=== PATIENT | female | born 1950 | race Caucasian/White ===

== ENCOUNTER 2017-06-19 08:51 | Outpatient (CLI) | payer MEDICARE, OTHER ==
--- NOTE | 2017-06-20 10:15 | Mammography Report ---
DIGITAL SCREENING MAMMOGRAM: 06/19/2017 COMPARISON: 05/17/2016, 06/10/2013, 05/29/2012, 05/11/2011, 03/24/2010. TECHNIQUE: Bilateral digital CC and MLO projections. FINDINGS: There are scattered fibroglandular densities. There are increasing calcifications in the p osterior upper inner right breast which appear coarse and are likely benign. There is also a slight i ncrease in calcifications in the lateral left breast. Scattered nodularity in both breasts is stable. No suspicious architectural distortion, skin thickening or other interval change. IMPRESSION: PROBABLY BENIGN FINDINGS BILATERAL BREASTS. RECOMMENDATION: SUGGEST SIX MONTH FOLLOWUP BILATERAL MAMMOGRAPHY. BIRADS CATEGORY 3-PROBABLY BENIGN FINDINGS. STANDARD QUALIFYING STATEMENTS 1. This examination was reviewed with the aid of Computer-Aided Detection (CAD). 2. A negative or benign imaging report should not delay biopsy if clinically suspicious findings are present. Consider surgical consultation if warranted. More than 5% of cancers are not identified by i maging. 3. Dense breasts may obscure an underlying neoplasm. JOB #: [id number] EXT JOB #:[id number]
== END 2017-06-19 08:52 | disposition home or self-care (01) ==
LOC: DI 08:51
PROVIDERS: ATTEND Specialist
DX: Z12.31 Encounter for screening mammogram for malignant neoplasm of breast (principal); R92.1 Mammographic calcification found on diagnostic imaging of breast
CPT/HCPCS: 77067

== ENCOUNTER 2017-12-31 12:41 | Outpatient (CLI) | payer MEDICARE, OTHER ==
--- NOTE | 2017-12-31 15:12 | Mammography Report ---
Procedure Date: 12/31/2017 Accession Number: [id number] / [id number] Procedure: YESSENIA - Diagnostic Dig Bilat CPT Code: FULL RESULT: EXAM: Diagnostic Dig Bilat DATE: 12/31/2017 1:53 PM CLINICAL HISTORY: Follow-up microcalcifications. TECHNIQUE: Bilateral digital CC, ML, MLO views with additional magnification views. COMPARISON: 06/19/2017, 05-31 and 06/10/2013 FINDINGS: Clustered microcalcifications in the posterior superior medial right breast have not changed appreciably since 06/19/2017 and have minimally increased since 05-31. 2 punctate calcifications in the left breast 3:00 position middle third are also stable. No new findings are seen. Stable nodularity. IMPRESSION: Probably benign. BI-RADS 3 RECOMMENDATION: Follow-up bilateral mammography in 6 months. BIRADS CATEGORY 3: Probably benign STANDARD QUALIFYING STATEMENTS: 1. This examination was reviewed with the aid of Computer-Aided Detection (CAD). 2. A negative or benign imaging report should not delay biopsy if clinically suspicious findings are present. Consider surgical consultation if warrented. More than 5% of cancers are not identified by imaging. 3. Dense breasts may obscure an underlying neoplasm.
== END 2017-12-31 12:42 | disposition home or self-care (01) ==
LOC: DI 12:41
PROVIDERS: ATTEND Specialist
DX: R92.0 Mammographic microcalcification found on diagnostic imaging of breast (principal)
CPT/HCPCS: 77066

== ENCOUNTER 2018-01-01 14:36 | Outpatient (CLI) | payer MEDICARE, OTHER ==
--- NOTE | 2018-01-02 14:51 | DEXA Report ---
Procedure Date: 01/01/2018 Accession Number: [id number] / [id number] Procedure: DEX - Dexa Spine and/or Hip CPT Code: FULL RESULT: EXAM: Dexa Spine and/or Hip DATE: 01/01/2018 4:23 PM CLINICAL HISTORY: POST MENOPAUSAL TECHNIQUE: Dual energy x-ray absorptiometry (DXA) was performed on a [employer] System. Regions measured are the AP Spine, femoral neck, and if needed forearm. COMPARISON: None. In accordance with the International Society for Clinical Densitometry (ISCD) guidelines, data from previous exams may be reanalyzed using current recommendations and techniques. This is done to allow a more accurate basis for comparison with the current study. FINDINGS: The data for the lumbar spine is as follows: BMD (g/cm/cm) T-SCORE Z-SCORE REGION L1 0.949 -1.5 -0.5 L2 0.960 -2.0 -1.0 L3 1.103 -0.8 0.2 L4 1.167 -0.3 0.8 TOTAL 1.055 -1.0 0.0 NOTE: All evaluable vertebrae are used for classification The data for the hip is as follows: BMD (g/cm/cm) T-SCORE Z-SCORE REGION Neck 0.848 -1.4 -0.1 TOTAL 0.924 -0.7 0.3 NOTE: The femoral neck or total proximal femur, whichever is lowest, is used for classification. IMPRESSION: THE WHO CLASSIFICATION BASED ON THE INTERNATIONAL REFERENCE STANDARD IS OSTEOPENIA. THE FRACTURE RISK IS INCREASED. RECOMMENDATION: Patients with diagnosis of osteoporosis or osteopenia should have regular bone mineral density assessment. For those eligible for Medicare, routine testing is allowed once every 2 years. Testing frequency can be increased for patients who have rapidly progressing disease or for those who are receiving medical therapy to restore bone mass. COMMENT: World Health Organization (WHO) definitions for osteoporosis and osteopenia: NORMAL BMD: T-score at -1.0 or higher, fracture risk is low OSTEOPENIA BMD: T-score between -1.0 and -2.5, fracture risk is increased. OSTEOPOROSIS BMD: T-score at -2.5 or lower, fracture risk is high. National Osteoporosis Foundation recommends: 1. Obtain adequate dietary calcium (at least 1200 mg per day) and vitamin D (400-800 international units per day). 2. Participate, as appropriate, in regular weightbearing and muscle-strengthening exercise. 3. Avoid tobacco use and reduce alcohol and caffeine intake. 4. For more detailed information see the website at www.NOF.org.
== END 2018-01-01 14:37 | disposition home or self-care (01) ==
LOC: DI 14:36
PROVIDERS: ATTEND Specialist
DX: Z13.820 Encounter for screening for osteoporosis (principal); M85.89 Other specified disorders of bone density and structure, multiple sites; Z78.0 Asymptomatic menopausal state
CPT/HCPCS: 77080

== ENCOUNTER 2019-04-15 13:49 | Outpatient (CLI) | payer MEDICARE, OTHER ==
--- NOTE | 2019-04-16 07:56 | Mammography Report ---
Reason: ROUTINE MAMMO Procedure Date: 04/15/2019 Accession Number: [id number] / [id number] Procedure: YESSENIA - Screening Mammo w/[facility] CPT Code: FULL RESULT: EXAM: Screening Mammo w/[facility] DATE: 04/15/2019 2:47 PM CLINICAL HISTORY: Screening TECHNIQUE: (B) - Bilateral CC and MLO views were obtained. COMPARISON: 12/31/2017, 06/19/2017 PARENCHYMAL PATTERN: (A) - The breasts demonstrate scattered fibroglandular densities bilaterally. FINDINGS: Stable scattered right breast intramammary lymph nodes including a dominant node inferiorly, unchanged compared to at least 2015. There are no suspicious masses, calcifications, or areas of distortion. IMPRESSION: Benign findings. BI-RADS category 2. RECOMMENDATION: (ANNUAL) - Recommend routine annual screening mammography. BI-RADS CATEGORY: (2) - Benign Findings. STANDARD QUALIFYING STATEMENTS: 1. This examination was not reviewed with the aid of Computer-Aided Detection (CAD). 2. A negative or benign imaging report should not preclude biopsy if clinically suspicious findings are present. 3. Dense breasts may obscure an underlying neoplasm. 4. This examination was reviewed with the aid of 3D breast imaging (tomosynthesis).
== END 2019-04-15 13:50 | disposition home or self-care (01) ==
LOC: DI 13:49
DX: Z12.31 Encounter for screening mammogram for malignant neoplasm of breast (principal)
CPT/HCPCS: 77063; 77067

== ENCOUNTER 2020-09-30 11:35 | Outpatient (CLI) | payer MEDICARE, OTHER ==
--- NOTE | 2020-09-30 12:10 | CT Report ---
PROCEDURE: Abdomen/Pelvis WO INDICATIONS: HX OF KIDNEY STONES, RT FLANK PAIN TECHNIQUE: Noncontrast 5 mm thick sections acquired from the diaphragms to the symphysis. 5 mm coronal and sagi ttal reformats were then performed. For radiation dose reduction, the following was used: automated exposure control, adjustment of mA and/or kV according to patient size. COMPARISON: CT abdomen and pelvis without IV contrast 10/05/2015. FINDINGS: Image quality: Excellent. ABDOMEN: Lung bases: Lung bases are clear. Heart size is normal. Small hiatal hernia. Solid organs: Liver and spleen are normal in size. Gallbladder is unremarkable. Pancreas is normal in contours. No adrenal nodules. Kidneys are normal in size, without hydronephrosis or nephrolithi asis. Subtle hypodensity in the mid right kidney is similar to the CT from 2016. Right renal pelvis i s minimally prominent, unchanged. Peritoneum and bowel: No small bowel obstruction. Diverticulosis. No diverticulitis seen. Somewhat pr ominent stool in the proximal colon. The appendix is unremarkable. No free fluid or air. Nodes and vessels: No retroperitoneal or mesenteric adenopathy by size criteria. Aorta and inferior vena cava are normal in caliber. Mild calcified metastatic plaque. Miscellaneous: No ventral hernias. PELVIS: Genitourinary: Bladder is unremarkable. The uterus is absent. Suspect pelvic floor laxity. Miscellaneous: No inguinal hernias or adenopathy. Bones: No suspicious bony lesions. No vertebral body compression fractures. Right L5 pars defect. A nterolisthesis of L5 on S1 measuring 1 cm. Exaggerated lumbar spine lordosis. Severe DDD at L5-S1. IMPRESSION: No source for right flank pain is identified. No kidney stones. No hydronephrosis. The appendix is not dilated. No free fluid. Reviewed by: Froylan Dyer MD on 09/30/2020 11:09 AM ANGELA Approved by: Froylan Dyer MD on 09/30/2020 11:09 AM ANGELA Station ID: [id number]
== END 2020-09-30 11:36 | disposition home or self-care (01) ==
LOC: DI 11:35
PROVIDERS: ATTEND Physician Assistant
DX: R10.9 Unspecified abdominal pain (principal); R31.9 Hematuria, unspecified

== ENCOUNTER 2021-03-09 10:51 | Outpatient (CLI) | payer MEDICARE, OTHER ==
--- NOTE | 2021-03-09 15:08 | DEXA Report ---
PROCEDURE: Dexa Spine and/or Hip INDICATIONS: POST MENOPAUSAL TECHNIQUE: Dual energy x-ray absorptiometry (DXA) was performed on a [employer] System. Regions measur ed are the AP Spine, femoral neck, and if needed forearm. COMPARISON: None. FINDINGS: Lumbar Spine: Bone Mineral Density 1.076 g/cm/cm,T score - 0.9, -1.0 on prior exam Left Hip: Bone Mineral Density 0.911 g/cm/cm,T score -0.8, compared to -0.7 on prior exam. Left Femoral Neck: Bone Mineral Density 0.769 g/cm/cm, T score -1.9, compared to -1.4 and prior exam. (T score greater or equal to -1.0: NORMAL) (T score from -1.1 to -2.4: OSTEOPENIA) (T score less than or equal to -2.5 to: OSTEOPOROSIS) Impression: 1. Progressive osteopenia now moderate to severe in the left femoral neck. Patients with diagnosis of osteoporosis or osteopenia should have regular bone mineral density assess ment. For those eligible for Medicare, routine testing is allowed once every 2 years. Testing frequ ency can be increased for patients who have rapidly progressing disease or for those who are receivin g medical therapy to restore bone mass. Reviewed by: Afshan Jones MD on 03/09/2021 3:07 PM PDT Approved by: Afshan Jones MD on 03/09/2021 3:07 PM PDT Station ID: [id number]
== END 2021-03-09 10:52 | disposition home or self-care (01) ==
LOC: DI 10:51
PROVIDERS: ATTEND Physician Assistant
DX: Z13.820 Encounter for screening for osteoporosis (principal); M85.89 Other specified disorders of bone density and structure, multiple sites

== ENCOUNTER 2021-03-09 10:52 | Outpatient (CLI) | payer MEDICARE, OTHER ==
--- NOTE | 2021-03-10 13:25 | Mammography Report ---
BILATERAL DIGITAL SCREENING MAMMOGRAM 3D/2D: 03/09/2021 CLINICAL: Routine screening. Comparison is made to exams dated: 04/15/2019 mammogram, 12/31/2017 mammogram, 06/19/2017 mammogram, mammogram, 06/10/2013 mammogram, and 05/29/2012 mammogram - [facility]. Th e tissue of both breasts is predominantly fatty. No significant masses, calcifications, or other findings are seen in either breast. There has been no significant interval change. IMPRESSION: NEGATIVE There is no mammographic evidence of malignancy. A 1 year screening mammogram is recommended. This exam was interpreted at Station ID: [id number]. NOTE: For mammograms, a report in lay terms will be sent to the patient. Approximately 15% of breast malignancies will not be visualized mammographically. In the management of a palpable breast mass, a negative mammogram must not discourage biopsy of a clinically suspicious lesion. Electronically Signed By: Mukund Limon M.D., jr/rc:03/09/2021 12:38:47 ACR BI-RADS Category 1: Negative 3341F PARENCHYMAL PATTERN: (F) - The breast(s) demonstrate(s) diffuse fatty replacement. BI-RADS CATEGORY: (1) - 1 RECOMMENDATION: (ANNUAL) - Recommend routine annual screening mammography. [id number] 1 year screening LATERALITY: (B)
== END 2021-03-09 10:53 | disposition home or self-care (01) ==
LOC: DI 10:52
PROVIDERS: ATTEND Physician Assistant
DX: Z12.31 Encounter for screening mammogram for malignant neoplasm of breast (principal)

== ENCOUNTER 2022-06-19 13:32 | Outpatient (CLI) | payer MEDICARE, OTHER ==
--- NOTE | 2022-06-21 10:22 | Mammography Report ---
BILATERAL DIGITAL SCREENING MAMMOGRAM 3D/2D: 06/19/2022 CLINICAL: Routine screening. Comparison is made to exams dated: 03/09/2021 mammogram, 04/15/2019 mammogram, and 12/31/2017 mammogram - [facility]. There are scattered areas of fibroglandular density in both breasts (category b / 25%-50% glandular t issue). There is an oval focal asymmetry in the right breast at 12 o'clock posterior depth. This is increase d in size. No other significant masses, calcifications, or other findings are seen in either breast. IMPRESSION: INCOMPLETE: NEEDS ADDITIONAL IMAGING EVALUATION The oval focal asymmetry in the right breast resembles a lymph node and is indeterminate. Additional views with possible ultrasound are recommended. Based on the Tyrer Cuzick model (a risk assessment model) the patients lifetime risk is 7.3% and her 10 year risk is 6.0%. According to the ACR, ACS, and NCCN guidelines, an annual breast MRI exam haim g with mammogram is recommended if the patients lifetime risk is 20% or greater. This exam was interpreted at Station ID: [id number]. NOTE: For mammograms, a report in lay terms will be sent to the patient. Approximately 15% of breast malignancies will not be visualized mammographically. In the management of a palpable breast mass, a negative mammogram must not discourage biopsy of a clinically suspicious lesion. Electronically Signed By: Jad sheffield/rc:06/20/2022 09:52:45 ACR BI-RADS Category 0: Incomplete 3340F PARENCHYMAL PATTERN: (A) - The breast(s) demonstrate(s) scattered fibroglandular densities. BI-RADS CATEGORY: (0) - 0 Mammo and [place] [id number] Immediate follow-up LATERALITY: (R)
== END 2022-06-19 13:33 | disposition home or self-care (01) ==
LOC: DI 13:32
PROVIDERS: ATTEND Physician Assistant
DX: Z12.31 Encounter for screening mammogram for malignant neoplasm of breast (principal); R92.8 Other abnormal and inconclusive findings on diagnostic imaging of breast

== ENCOUNTER 2022-07-05 10:49 | Outpatient (CLI) | payer MEDICARE, OTHER ==
--- NOTE | 2022-07-05 13:30 | Ultrasound Report ---
LIMITED ULTRASOUND OF RIGHT BREAST AND AXILLA: 07/05/2022 CLINICAL: Patient returns today to evaluate a focal asymmetry in the right breast. Comparison is made to exams dated: 07/05/2022 mammogram, 06/19/2022 mammogram, 03/09/2021 mammogram, mammogram, 12/31/2017 mammogram, and 05/17/2016 mammogram - [facility]. Color flow and real-time ultrasound of the right breast 12 o'clock, and axilla regions were performed . Navarro scale images of the real-time examination were reviewed. There is a 0.5 cm x 0.6 cm x 0.6 cm (radial, anti-radial, transverse) irregular solid mass in the rig ht breast at 12 o'clock posterior depth. This irregular solid mass is hypoechoic with no posterior a coustic shadowing or enhancement. Color flow imaging demonstrates that there is no vascularity prese nt. IMPRESSION: SUSPICIOUS OF MALIGNANCY The 0.5 cm x 0.6 cm x 0.6 cm (radial, anti-radial, transverse) irregular solid mass in the right hina st is suspicious of malignancy. An ultrasound guided biopsy is recommended. This exam was interpreted at Station ID: [id number]. Electronically Signed By: Mukund Limon M.D., jr/rc:07/05/2022 12:40:07 Ultrasound BI-RADS: 4 Suspicious for malignancy BI-RADS CATEGORY: (4) - 4 Biopsy [id number] Immediate follow-up LATERALITY: (R)
--- NOTE | 2022-07-05 13:30 | Mammography Report ---
UNILATERAL RIGHT DIGITAL DIAGNOSTIC MAMMOGRAM 3D/2D WITH SPOT COMPRESSION: 07/05/2022 CLINICAL: Patient returns today to evaluate a focal asymmetry in the right breast. Comparison is made to exams dated: 06/19/2022 mammogram, 03/09/2021 mammogram, 04/15/2019 mammogram, mammogram, and 06/19/2017 mammogram - [facility]. There are scattered areas of fibroglandular density in the right breast (category b / 25%-50% glandul ar tissue). There is an oval focal asymmetry in the right breast at 12 o'clock posterior depth. This is seen in additional views. This is not significantly changed. No other significant masses or calcifications are seen in the breast. IMPRESSION: INCOMPLETE: NEEDS ADDITIONAL IMAGING EVALUATION The oval focal asymmetry in the right breast is indeterminate. An ultrasound is recommended. Based on the Tyrer Cuzick model (a risk assessment model) the patients lifetime risk is 7.3% and her 10 year risk is 6.0%. According to the ACR, ACS, and NCCN guidelines, an annual breast MRI exam haim g with mammogram is recommended if the patients lifetime risk is 20% or greater. This exam was interpreted at Station ID: [id number]. NOTE: For mammograms, a report in lay terms will be sent to the patient. Approximately 15% of breast malignancies will not be visualized mammographically. In the management of a palpable breast mass, a negative mammogram must not discourage biopsy of a clinically suspicious lesion. Electronically Signed By: Mukund Limon M.D., jr/rc:07/05/2022 12:38:58 ACR BI-RADS Category 0: Incomplete 3340F PARENCHYMAL PATTERN: (A) - The breast(s) demonstrate(s) scattered fibroglandular densities. BI-RADS CATEGORY: (0) - 0 Ultrasound [id number] Immediate follow-up LATERALITY: (B)
== END 2022-07-05 10:50 | disposition home or self-care (01) ==
LOC: DI 10:49
PROVIDERS: ATTEND Physician Assistant
DX: N63.15 Unspecified lump in the right breast, overlapping quadrants (principal)

== ENCOUNTER 2022-07-12 12:38 | Outpatient (CLI) | payer MEDICARE, OTHER ==
[2022-07-12] MEDS ORDERED: LIDOCAINE-MPF 1% 5 ML VIAL ONE (13:22)
[2022-07-12] MEDS ORDERED: LIDOCAINE 1%-EPI 1:100000 20 ML MDV ONE (13:22)
[2022-07-12] MEDS ORDERED: LIDOCAINE 1%-EPI 1:100000 20 ML MDV SUBQ ONE (15:20)
[2022-07-12] MEDS ORDERED: LIDOCAINE-MPF 1% 5 ML VIAL TD ONE (15:21)
--- NOTE | 2022-07-13 13:01 | Mammography Report ---
UNILATERAL RIGHT DIGITAL DIAGNOSTIC MAMMOGRAM POST-PROCEDURE IMAGING FOR MARKER PLACEMENT: 07/12/2022 CLINICAL: Post right breast ultrasound biopsy clip placement imaging. Comparison is made to exams dated: 07/05/2022 mammogram, 06/19/2022 mammogram, and 03/09/2021 mammogra m - [facility]. There are scattered areas of fibroglandular density in the right breast (category b / 25%-50% glandul ar tissue). There is a marker clip in the appropriate position in the right breast at 12 o'clock posterior depth. The marker clip is adjacent to the mammographic abnormality and there is a hematoma. IMPRESSION: POST PROCEDURE MAMMOGRAM FOR MARKER PLACEMENT There was a successful marker clip placement in the right breast posterior depth. The marker clip is adjacent to the mammographic abnormality and there is a hematoma. Based on the Tyrer Cuzick model (a risk assessment model) the patients lifetime risk is 7.3% and her 10 year risk is 6.0%. According to the ACR, ACS, and NCCN guidelines, an annual breast MRI exam haim g with mammogram is recommended if the patients lifetime risk is 20% or greater. This exam was interpreted at Station ID: [id number]. NOTE: For mammograms, a report in lay terms will be sent to the patient. Approximately 15% of breast malignancies will not be visualized mammographically. In the management of a palpable breast mass, a negative mammogram must not discourage biopsy of a clinically suspicious lesion. Electronically Signed By: Genaro Lopes M.D. lc/:07/12/2022 15:11:48 ACR BI-RADS Category Post-procedure mammogram for marker placement PARENCHYMAL PATTERN: (A) - The breast(s) demonstrate(s) scattered fibroglandular densities. BI-RADS CATEGORY: () - Unspecified - other recall n/a LATERALITY: (B)
--- NOTE | 2022-07-20 08:22 | Ultrasound Report ---
ULTRASOUND GUIDED BIOPSY RIGHT BREAST USING VACUUM DEVICE WITH MARKING DEVICE INSERTED AND POST MAMMO GRAPHIC IMAGIN07/12/2022 CLINICAL: Right breast mass. PATIENT CONSENT: Risks (minor bleeding, infection, vasovagal reaction and repeat procedure), benefits and alternatives were explained to the patient and written informed consent was obtained. Correlation is made to exams dated: 07/05/2022 ultrasound, 07/05/2022 mammogram, 06/19/2022 mammogram , 03/09/2021 mammogram, 04/15/2019 mammogram, and 12/31/2017 mammogram - [facility]. An ultrasound guided biopsy using real-time ultrasound was performed for the 0.5 cm x 0.6 cm x 0.6 cm mass located in the right breast at 12 o'clock posterior depth. This was described on the previous ultrasound report. The skin was prepped in the usual manner. Local anesthetic was administered to t he access site. A skin jerome was made in the breast. A 13 gauge biopsy needle was placed adjacent to the abnormality under ultrasound guidance. Once the needle was documented to be in the correct loca tion, three specimens were obtained using the Mammotome biopsy system. A clip was inserted into the biopsy cavity. Post procedure mammographic imaging was obtained. The specimens were sent to the lab oratory for pathological analysis. IMPRESSION: ULTRASOUND GUIDED BIOPSY MALIGNANT Ultrasound guided biopsy of the 0.5 cm x 0.6 cm x 0.6 cm mass in the right breast at 12 o'clock poste rior depth was successful. Pathology indicates malignant invasive ductal carcinoma (ID). Pathology results are concordant with imaging findings. A surgical/oncologic consultation is recommended. This exam was interpreted at Station ID: [id number]. Genaro Sutton M.D. ,aty/:07/19/2022 18:27:20 BI-RADS CATEGORY: () - Unspecified - other recall n/a LATERALITY: (B)
== END 2022-07-12 12:39 | disposition home or self-care (01) ==
LOC: DI 12:38
PROVIDERS: ATTEND Physician Assistant
DX: C50.811 Malignant neoplasm of overlapping sites of right female breast (principal); Z17.0 Estrogen receptor positive status [ER+]
CPT/HCPCS: 19083

== ENCOUNTER 2022-10-09 07:12 | Day surgery (SDC) | payer MEDICARE, OTHER ==
[2022-10-09] MEDS ORDERED: LIDOCAINE 1%-EPI 1:100000 20 ML MDV ONE (07:38)
[2022-10-09] MEDS ORDERED: LIDOCAINE-MPF 1% 5 ML VIAL ONE (07:39)
[2022-10-09] MEDS ORDERED: ACETAMINOPHEN 500 MG TABLET PO ONE (07:42)
[2022-10-09] MEDS ORDERED: CEFAZOLIN 2G/50ML 0.9% NS 2 GM/50 ML BAG IV ONE (07:42)
[2022-10-09] MEDS ORDERED: LIDOCAINE-MPF 1% 5 ML VIAL TD ONE (09:30)
--- NOTE | 2022-10-09 09:32 | ANESTHESIA ---
Pre-Anesthesia VS, & Labs - Diagnosis invasive ductal carcinoma - Procedure R breast lumpectomy with sentinel node biopsy Vital Signs: Temp Pulse Resp BP Pulse Ox O2 Flow Rate 36.9 C 100 15 134/86 H 95 10/09/22 07:52 10/09/22 07:52 10/09/22 07:52 10/09/22 07:52 10/09/22 07:52 Height: 5 ft 3.5 in Weight (kg): 85 kg Body Mass Index: 32.6 BMI Classification: Obese - NPO >8 hours - Is Patient ?: No Home Medications and Allergies Active Medications Lidocaine HCl (Lidocaine-Mpf 1% 5 Ml Vial) 8 ml TD ONCE ONE Stop: 10/09/22 09:31 Cholecalciferol [Vitamin D3] 1,000 unit PO DAILY 08/23/22 Rosuvastatin Calcium [Crestor] 20 mg PO UD 08/23/22 Ubidecarenone [Co Q-10] 300 mg PO DAILY PM 08/23/22 Anastrozole 1 mg PO DAILY 09/13/22 Allergies/Adverse Reactions: Allergies Allergy/AdvReac Type Severity Reaction Status Date / Time No Known Drug Allergies Allergy Verified 12/23/19 16:12 Anes History & Medical History - Anesthetic History Anesthesia Complications: reports: No previous complications Family history of Anesthesia Complications: Denies Family history of Malignant Hyperthermia: Denies - Medical History Cardiovascular: reports: High cholesterol Pulmonary: reports: None Gastrointestinal: reports: GERD, Other (dysphagia) Urinary: reports: Kidney stones Musculoskeletal: reports: None Endocrine/Autoimmune: reports: None Skin: reports: Other Smoking Status: Never smoker History of Cancer?: Yes (lymphoma and breast CA) Other Past Medical History: 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
[2022-10-09] MEDS ORDERED: HYDROmorphone 0.5 MG/0.5 ML SYRINGE IVP PRN ×2 (09:34→15:40)
[2022-10-09] MEDS ORDERED: ePHEDrine 50 MG/ML VIAL IVP PRN (09:34)
[2022-10-09] MEDS ORDERED: ATROPINE ABBOJECT 1 MG/10 ML SYRINGE IVP PRN (09:34)
[2022-10-09] MEDS ORDERED: NALOXONE 0.4 MG/ML VIAL IVP PRN (09:34)
[2022-10-09] MEDS ORDERED: METOCLOPRAMIDE 10 MG/2 ML VIAL IVP PRN (09:34)
[2022-10-09] MEDS ORDERED: ONDANSETRON 4 MG/2 ML VIAL IVP PRN (09:34)
[2022-10-09] MEDS ORDERED: MORPHINE 2 MG/ML CARPUJECT IVP PRN (09:34)
[2022-10-09] MEDS ORDERED: fentaNYL 100 MCG/2 ML VIAL IVP PRN (09:34)
[2022-10-09] MEDS ORDERED: LACTATED RINGERS 1,000 ML IV SCH (10:00)
[2022-10-09] MEDS ORDERED: PROPOFOL 200 MG/20 ML VIAL IVP ONE (10:43)
[2022-10-09] MEDS ORDERED: MIDAZOLAM 2 MG/2 ML VIAL ONE (10:44)
[2022-10-09] MEDS ORDERED: fentaNYL 100 MCG/2 ML VIAL ONE (10:44)
[2022-10-09] MEDS ORDERED: BUPIVACAINE 0.5% PF 30 ML VIAL ONE (11:09)
[2022-10-09] MEDS ORDERED: LIDOCAINE MPF 2%-EPI 1:200000 20 ML VIAL ONE (11:09)
[2022-10-09] MEDS ORDERED: LACTATED RINGERS 1,000 ML IV ONE ×2 (11:38→15:43)
[2022-10-09] MEDS ORDERED: ePHEDrine 50 MG/ML VIAL IVP ONE (13:54)
[2022-10-09] MEDS ORDERED: LIDOCAINE MPF 2%-EPI 1:200000 20 ML VIAL SUBQ ONE ×2 (14:15)
[2022-10-09] MEDS ORDERED: BUPIVACAINE 0.5% PF 30 ML VIAL SUBQ ONE ×2 (14:16)
[2022-10-09] MEDS ORDERED: ONDANSETRON 4 MG/2 ML VIAL ONE (15:25)
[2022-10-09] MEDS ORDERED: oxyCODONE 5 MG TABLET PO PRN (15:40)
--- NOTE | 2022-10-09 15:45 | OPERATIVE REPORT ---
Operative Report - General Procedure Date: 10/09/22 Planned Procedure: right lumpectomy and sentinel lymph node biopsy Pre-Op Diagnosis: invasive ductal carcinoma Procedure Performed: right lumpectomy and sentinel lymph node biopsy Post Op Diagnosis: invasive ductal carcinoma - Procedure Note Primary Surgeon: Dr. Kimberly Zavala Anesthesia Provider: Lisa Dowling CRNA Anesthesia Technique: General LMA, Local Pathology: 1. right breast lumpectomy (oriented: short superior, long lateral, double deep) 2. posterior margin reexcision to chest wall 3. SLN #1, 6424 4. SLN #2, 2228 5. SLN #3, 4103 Estimated Blood Loss (mL): 25 Indications: The patient had a lesion identified in screening mammogram in the right breast. Biopsy confirmed invasive ductal carcinoma. She was seen and evaluated in the clinic. We discussed the risks, benefits, and alternatives of lumpectomy and sentinel lymph node biopsy. Of note the patient has a history of radiation for lymphoma and saw radiation oncology prior to surgery. All parties felt that lumpectomy was an appropriate course of care. Risks, benefits, and alternatives of the surgery were discussed including bleeding, infection, damage to surrounding structures, positive margins requiring reexcision, recurrence of the cancer, and numbness or swelling of the arm. The patient voiced understanding, her questions were answered, and she wished to proceed. A consent was signed by the patient. Findings: 1. clip visualized in field 2. specimen mammogram confirms lesion of concern 3. SLN #1 6424, SLN #2 2228, SLN #3 4103 Complications: none - Other Other Information/Narrative: The patient was taken to the operating room and placed in the supine position. Preop antibiotics were given. ERAS medications were given. The patient was prepped and draped in the usual sterile fashion. A preop surgical timeout was performed. Attention was turned to the patient's right breast. An incision was made which incorporated the wire. Skin flaps were raised superiorly and inferiorly to the incision. The dissection was carried down until the clip was visualized adjacent to the wire. At this point, serrated scissors were used to perform a lumpectomy staying approximately 1 cm away from the wire in all dimensions. The lumpectomy specimen was removed and oriented with suture on the back table. On palpation, the posterior margin appeared closest. The specimen was sent to mammography and the lesion was confirmed to be within the specimen, however the clip was not. I suspect the clip was removed with suction while mobilizing the lumpectomy specimen. The specimen was then sent to pathology. The edges of the lumpectomy cavity were inspected and there were no palpable abnormalities, but I did elect to take a small amount of tissue off the pectoralis muscle just deep to the previously taken specimen, as this was the area with the closest margin by palpation. Hemostasis was confirmed. Attention was then turned to the right axilla. An incision was made just inferior to the hairline at the area of greatest uptake using the neoprobe device. The incision was made using a 15 blade scalpel and carried down through the skin and subcutaneous tissues to the level of the axillary fascia. The fascia was incised. The sentinel lymph nodes were identified using the neoprobe. Clips were used proximally and distally to the nodes and the nodes were removed the first node had a maximal reading of 6424 on the back table. The second sentinel lymph node measured 2228 on the back table, and the third sentinel l ymph node measured 4103. On further inspection, there were no additional lymph nodes that had at least 10% uptake, 642, and no abnormal palpable nodes. Hemostasis was confirmed in the axilla. The deep dermal tissues of both incisions were closed with 3-0 Vicryl followed by a 4-0 Monocryl running stitch was placed in a subcuticular fashion. Skin glue was placed over both incisions. The patient tolerated the procedure well. There were no complications.
--- NOTE | 2022-10-09 16:15 | ANESTHESIA POST OP EVALUATION ---
Anesthesia Post Eval - Post Anesthesia Eval Vitals: Last Vital Signs Temp 36.6 C 10/09/22 16:05 Pulse 87 10/09/22 16:05 Resp 15 10/09/22 16:05 BP 121/88 H 10/09/22 16:05 Pulse Ox 96 10/09/22 16:05 O2 Flow Rate CV Function Including HR & BP: Stable Pain Control: Satisfactory Nausea & Vomiting: Negative Mental Status: Baseline Respiratory Status: Airway Patent Hydration Status: Satisfactory Anesthesia Complications: None
[2022-10-09] MEDS ORDERED: oxyCODONE 5 MG TABLET ONE (16:30)
[2022-10-09 16:40] VITALS: BP 129/82
--- NOTE | 2022-10-10 09:48 | Mammography Report ---
SPECIMEN RIGHT BREAST: 10/09/2022 CLINICAL: Right breast specimen. Correlation is made to exams dated: 10/09/2022 localization, 07/12/2022 mammogram, and 07/05/2022 [facility]. A lumpectomy specimen was imaged for the previous biopsy site located in the right breast at 12 o'cl ock posterior depth. IMPRESSION: SPECIMEN The imaged specimen includes the lesion and the distal portion of the localization wire and does not include biopsy clip. This exam was interpreted at Station ID: [id number]. Vic sanders/matteorad:10/09/2022 16:07:25 BI-RADS CATEGORY: () - Unspecified - other recall n/a LATERALITY: (B)
--- NOTE | 2022-10-10 09:48 | Mammography Report ---
DIGITAL MAMMOGRAPHY GUIDED WIRE LOCALIZATION RIGHT BREAST WITH POST DIGITAL MAMMOGRAPHIC IMAGIN09/14 CLINICAL: Right breast wire localization with mammography. Correlation is made to exams dated: 07/12/2022 mammogram, 07/05/2022 mammogram, 06/19/2022 mammogram, 03/09/2021 mammogram, and 04/15/2019 mammogram - [facility]. A wire localization using digital mammography guidance was performed for the marker clip located in t he right breast at 12 o'clock posterior depth . This was described on the previous mammography and u ltrasound reports. The skin was prepped in the usual manner. Local anesthetic was administered to t he access site. The localization was approached from the craniocaudal aspect. A J-hook wire was ins erted into the targeted area under digital mammography guidance. A sterile dressing was applied to t he access site. Post placement digital mammographic imaging demonstrates the tip demarcates the boun daries of the targeted area. IMPRESSION: WIRE LOCALIZATION Wire localization for the marker clip in the right breast at 12 o'clock posterior depth was successfu l with no apparent post procedure complications. This exam was interpreted at Station ID: [id number]. Vic Castro M.D. jl/:10/09/2022 12:06:40 BI-RADS CATEGORY: () - RECOMMENDATION: (ADDMAM) - Recommend additional mammographic views. [id number] Immediate follow-up LATERALITY: (B)
== END 2022-10-09 07:13 | disposition home or self-care (01) ==
LOC: SDS 07:12
PROVIDERS: ATTEND Surgery
PROC: 07B50ZX Excision of Right Axillary Lymphatic, Open Approach, Diagnostic (ICD-10-PCS; principal; 2022-10-09 10:00)
PROC: 0HBT0ZZ Excision of Right Breast, Open Approach (ICD-10-PCS; 2022-10-09 10:00)
DX: C50.811 Malignant neoplasm of overlapping sites of right female breast (principal); Z17.0 Estrogen receptor positive status [ER+]; Z92.3 Personal history of irradiation; E66.9 Obesity, unspecified; Z68.32 Body mass index [BMI] 32.0-32.9, adult

== ENCOUNTER 2023-05-24 11:02 | Outpatient (CLI) | payer MEDICARE, OTHER ==
--- NOTE | 2023-05-25 15:51 | Mammography Report ---
BILATERAL DIGITAL DIAGNOSTIC MAMMOGRAM 3D/2D WITH SPOT COMPRESSION - RIGHT BREAST POST LUMPECTOMY: CLINICAL: Post right lumpectomy. Palpable left breast lump by physician. Comparison is made to exams dated: 10/09/2022 localization, 10/09/2022 specimen, 07/12/2022 mammogram, 07/05/2022 mammogram, 06/19/2022 mammogram, and 03/09/2021 mammogram - [facility]. Both breasts are almost entirely fatty (category a/<25% glandular tissue). There are new surgical clips in the right breast at 12 o'clock in the posterior depth. There is a new low density asymmetry with an indistinct margin in the left breast at 12 o'clock anter ior depth. This correlates as palpated. No other significant masses, calcifications, or other findings are seen in either breast. IMPRESSION: INCOMPLETE: NEEDS ADDITIONAL IMAGING EVALUATION The new palpable low density asymmetry in the left breast is indeterminate. An ultrasound is recomme nded. This was performed immediately following this exam. Expected post lumpectomy appearance of the right breast. This exam was interpreted at Station ID: [id number]. NOTE: For mammograms, a report in lay terms will be sent to the patient. Approximately 15% of breast malignancies will not be visualized mammographically. In the management of a palpable breast mass, a negative mammogram must not discourage biopsy of a clinically suspicious lesion. Electronically Signed By: Liliane lima/:05/24/2023 12:13:33 ACR BI-RADS Category 0: Incomplete 3340F PARENCHYMAL PATTERN: (F) - The breast(s) demonstrate(s) diffuse fatty replacement. BI-RADS CATEGORY: (0) - 0 Ultrasound [id number] Immediate follow-up LATERALITY: (B)
--- NOTE | 2023-05-25 15:51 | Ultrasound Report ---
LIMITED ULTRASOUND OF LEFT BREAST: 05/24/2023 CLINICAL: Palpable left breast lump. Comparison is made to exams dated: 05/24/2023 mammogram, 10/09/2022 specimen, 10/09/2022 localization, 07/12/2022 ultrasound biopsy, 07/12/2022 mammogram, and 07/05/2022 ultrasound - [facility]. Color flow and real-time ultrasound of the left breast 11-12 o'clock region were performed. [place] sarah images of the real-time examination were reviewed. There is an irregular area of shadowing fibroglandular tissue with an indistinct, angular, and spicul ated margin in the left breast at 12 o'clock anterior depth. This is immediately subjacent to a thin linear subdermal scar, and there is overlying thickened echogenic tissue. No increased vascularity. This correlates as palpated and with mammography findings. There is mild associated skin thickening. Incidental note of a 3 mm adjacent cyst. IMPRESSION: SUSPICIOUS OF MALIGNANCY The irregular shadowing area corresponds to the palpable abnormality and mammographic finding. This d egree of shadow is more than expected for the overlying scar, and has developed recently despite dino te surgery (4 years prior). An ultrasound guided biopsy is recommended. Findings and recommendation s were discussed with the patient in person by Dr. Gates at time of exam. This exam was interpreted at Station ID: [id number]. Electronically Signed By: Liliane lima/:05/24/2023 12:58:59 Ultrasound BI-RADS: 4a Low suspicion for malignancy BI-RADS CATEGORY: (4a) - Low Susp Biopsy [id number] Immediate follow-up LATERALITY: (L)
== END 2023-05-24 11:03 | disposition home or self-care (01) ==
LOC: DI 11:02
PROVIDERS: ATTEND Surgery
DX: C50.911 Malignant neoplasm of unspecified site of right female breast (principal); N63.21 Unspecified lump in the left breast, upper outer quadrant

== ENCOUNTER 2023-05-29 11:43 | Outpatient (CLI) | payer MEDICARE, OTHER ==
[~2023-05-29 11:43] MED LIST: LIDOCAINE 1%-EPI 1:100000 50 ML VIAL ONE; LIDOCAINE-MPF 1% 5 ML VIAL ONE
[2023-05-29] MEDS: LIDOCAINE-MPF 1% 5 ML VIAL TD ONE (13:39)
--- NOTE | 2023-05-30 16:18 | Mammography Report ---
UNILATERAL LEFT DIGITAL DIAGNOSTIC MAMMOGRAM POST-PROCEDURE IMAGING FOR MARKER PLACEMENT: 05/29/2023 CLINICAL: Post left breast ultrasound biopsy clip placement imaging. Comparison is made to exams dated: 05/24/2023 mammogram, 06/19/2022 mammogram, 03/09/2021 mammogram, an d 04/15/2019 mammogram - [facility]. The left breast is almost entirely fatty (category a/<25% glandular tissue). There is a marker clip in the appropriate position in the left breast at 12 o'clock in the retroareol ar region. This marker clip placement is at the biopsy site. This correlates as palpated and with u ltrasound findings. IMPRESSION: POST PROCEDURE MAMMOGRAM FOR MARKER PLACEMENT There was a successful marker clip placement in the left breast in the retroareolar region. This exam was interpreted at Station ID: [id number]. NOTE: For mammograms, a report in lay terms will be sent to the patient. Approximately 15% of breast malignancies will not be visualized mammographically. In the management of a palpable breast mass, a negative mammogram must not discourage biopsy of a clinically suspicious lesion. Electronically Signed By: Juanjose Sutton M.D. aty/:05/29/2023 22:49:16 ACR BI-RADS Category Post-procedure mammogram for marker placement PARENCHYMAL PATTERN: (F) - The breast(s) demonstrate(s) diffuse fatty replacement. BI-RADS CATEGORY: () - Unspecified - other recall n/a LATERALITY: (B)
--- NOTE | 2023-05-31 15:12 | Ultrasound Report ---
ULTRASOUND GUIDED BIOPSY LEFT BREAST USING VACUUM DEVICE WITH MARKING DEVICE INSERTED AND POST MAMMOG RAPHIC AND ULTRASOUND IMAGIN05/29/2023 CLINICAL: Left breast mass. PATIENT CONSENT: Risks (minor bleeding, infection, vasovagal reaction and repeat procedure), benefits and alternatives were explained to the patient and written informed consent was obtained. Correlation is made to exams dated: 05/24/2023 ultrasound, 05/24/2023 mammogram, 06/19/2022 mammogram, 03/09/2021 mammogram, 04/15/2019 mammogram, and 06/19/2017 mammogram - [facility]. An ultrasound guided biopsy using real-time ultrasound was performed for the 0.9 cm x 0.4 cm x 0.5 cm indistinct irregular shaped mass located in the left breast at 12 o'clock anterior depth 1 cm from t he nipple. This was described on the previous ultrasound report. The skin was prepped in the usual manner. Local anesthetic was administered to the access site. A skin jerome was made in the breast. The abnormality was approached from the lateral aspect. A 13 gauge biopsy needle was placed adjacent to the abnormality under ultrasound guidance. Once the needle was documented to be in the correct l ocation, five specimens were obtained using the Mammotome biopsy system. A hydromark clip was insert ed into the biopsy cavity. A sterile dressing was applied to the access site. Post procedure mammog raphic and ultrasound imaging demonstrates the location device at the targeted area. The specimens w ere sent to the laboratory for pathological analysis. IMPRESSION: ULTRASOUND GUIDED BIOPSY BENIGN Ultrasound guided biopsy of the 0.9 cm x 0.4 cm x 0.5 cm mass in the left breast at 12 o'clock anteri or depth 1 cm from the nipple was successful. Pathology indicates benign finding (fat necrcosis, fib rosis, giant cell reaction). Pathology results are concordant with imaging findings. Recommend retu rn to screening. This exam was interpreted at Station ID: [id number]. Juanjose venegas,lc/:05/31/2023 09:49:34 BI-RADS CATEGORY: () - Unspecified - other recall n/a LATERALITY: (B)
== END 2023-05-29 11:44 | disposition home or self-care (01) ==
LOC: DI 11:43
PROVIDERS: ATTEND Surgery
DX: C50.911 Malignant neoplasm of unspecified site of right female breast (principal); N60.32 Fibrosclerosis of left breast
CPT/HCPCS: 19083; 77065; J3490

== ENCOUNTER 2024-01-24 08:00 | Outpatient (CLI) | payer MEDICARE, OTHER | END 2024-01-24 23:59 | disposition home or self-care (01) | LOC: LAB 08:00 | PROVIDERS: ATTEND Emergency Medicine | DX: R30.0 Dysuria (principal) | CPT/HCPCS: 87086; 87181 ==

== ENCOUNTER 2024-03-21 08:00 | Outpatient (CLI) | payer MEDICARE, OTHER | END 2024-03-21 23:59 | disposition home or self-care (01) | LOC: LAB.S 08:00 | PROVIDERS: ATTEND Physician Assistant | DX: N39.0 Urinary tract infection, site not specified (principal) | CPT/HCPCS: 87077; 87086; 87181 ==